=== PATIENT | female | born 1965 | race Caucasian/White ===

== ENCOUNTER 2021-12-30 12:08 | Inpatient (IN) ==
[2021-12-30] MEDS ORDERED: MAGNESIUM SULF RIDER 4 GM/100 ML PREMIX IV PRN (12:50)
[2021-12-30] MEDS ORDERED: BISACODYL 5 MG TABLET PO PRN (12:50)
[2021-12-30] MEDS ORDERED: diphenhydrAMINE CAP 25 MG CAPSULE PO PRN (12:50)
[2021-12-30] MEDS ORDERED: MORPHINE 2 MG/1 ML SYRINGE IV PRN (12:50)
[2021-12-30] MEDS ORDERED: ONDANSETRON 4 MG/2 ML VIAL IV PRN (12:50)
[2021-12-30] MEDS ORDERED: MAGNESIUM SULF RIDER 2 GM/50 ML PREMIX IV PRN (12:50)
[2021-12-30 14:44] LABS: Basophils # 0.1 10*3/uL (0.0-0.2); Basophils % 0.6 % (0.0-0.8); Eosinophils # 0.3 10*3/uL (0.0-0.87); Eosinophils % 2.5 % (0.00-10.9); Hematocrit 43.4 VOL% (35.7-47.0); Hemoglobin 15.1 GM/DL (12.0-16.0); Immature Granulocytes % 0.5 %; Immature Granulocytes Absolute 0.05 #; Lymphocytes # 2.1 10*3/uL (1.4-4.0); Lymphocytes % 19.1 % (21.3-54.2); Mean Corpuscular HGB Conc 34.8 GM/DL (32-36); Mean Corpuscular Volume 86.8 FL (87-102); Mean Platelet Volume 10.2 FL (9.6-12.0); Monocytes # 0.5 10*3/uL (0.11-0.8); Monocytes % 4.3 % (1.7-12.7); Platelet Count 393 T/CUMM (130-400); Red Cell Distribution Width 12.8 % (9.3-17.3); White Blood Count 10.9 T/CUMM (4-12)
[2021-12-30] MEDS ORDERED: LOSARTAN 25 MG TABLET PO SCH (15:21)
[2021-12-30] MEDS ORDERED: hydrALAZINE 20 MG/1 ML VIAL IV PRN (15:21)
[2021-12-30 15:33] LABS: Albumin 3.7 G/DL (3.4-5.0); Bilirubin,Total 0.6 MG/DL (0.20-1.00); Calcium 9.7 MG/DL (8.5-10.1); Osmolality,Calculated 279.4 MOS/KG (273-304); Potassium 3.4 MMOL/L (3.5-5.1); Thyroid Stimulating Hormone 1.33 uIU/ml (0.358-3.74); Total Protein 8.4 G/DL (6.4-8.2)
[2021-12-30] MEDS ORDERED: VALSARTAN 80 MG TABLET PO ONE (15:44)
[2021-12-30] MEDS: POTASSIUM CHLORIDE 20 MEQ TABLET PO PRN ×3 (16:00→20:21)
[2021-12-30] MEDS: ZALEPLON 5 MG CAPSULE PO PRN (23:42)
[2021-12-31 05:41] LABS: Basophils # 0.1 10*3/uL (0.0-0.2); Basophils % 0.8 % (0.0-0.8); Eosinophils # 0.4 10*3/uL (0.0-0.87); Eosinophils % 4.9 % (0.00-10.9); Hematocrit 40.4 VOL% (35.7-47.0); Hemoglobin 13.7 GM/DL (12.0-16.0); Immature Granulocytes % 0.4 %; Immature Granulocytes Absolute 0.03 #; Lymphocytes # 2.2 10*3/uL (1.4-4.0); Lymphocytes % 26.6 % (21.3-54.2); Mean Corpuscular HGB Conc 33.9 GM/DL (32-36); Mean Corpuscular Volume 87.8 FL (87-102); Mean Platelet Volume 10.1 FL (9.6-12.0); Monocytes # 0.6 10*3/uL (0.11-0.8); Monocytes % 6.6 % (1.7-12.7); Neutrophils % 60.7 % (38.7-73.9); Platelet Count 313 T/CUMM (130-400); Red Cell Distribution Width 12.7 % (9.3-17.3); White Blood Count 8.3 T/CUMM (4-12)
[2021-12-31 06:01] LABS: Albumin 3.2 G/DL (3.4-5.0); Bilirubin,Total 0.8 MG/DL (0.20-1.00); Calcium 8.6 MG/DL (8.5-10.1); Osmolality,Calculated 282.3 MOS/KG (273-304); Potassium 3.8 MMOL/L (3.5-5.1); Risk Ratio 3.64; VLDL Cholesterol 12.4 MG/DL
[2021-12-31] MEDS: PANTOPRAZOLE 40 MG TABLET PO SCH (08:40)
[2021-12-31] MEDS: CHLORTHALIDONE 25 MG TABLET PO SCH (08:40)
[2021-12-31] MEDS: POTASSIUM CHLORIDE 20 MEQ TABLET PO PRN (08:40)
[2021-12-31] MEDS: LORATADINE 10 MG TABLET PO SCH (08:41)
[2021-12-31] MEDS ORDERED: VALSARTAN 80 MG TABLET PO SCH (09:00)
[2022-01-01 05:23] LABS: Basophils # 0.1 10*3/uL (0.0-0.2); Basophils % 0.7 % (0.0-0.8); Eosinophils # 0.5 10*3/uL (0.0-0.87); Hematocrit 41.6 VOL% (35.7-47.0); Hemoglobin 14.3 GM/DL (12.0-16.0); Immature Granulocytes % 0.4 %; Immature Granulocytes Absolute 0.04 #; Lymphocytes # 2.6 10*3/uL (1.4-4.0); Lymphocytes % 24.6 % (21.3-54.2); Mean Corpuscular HGB Conc 34.4 GM/DL (32-36); Mean Corpuscular Volume 87.4 FL (87-102); Mean Platelet Volume 10.4 FL (9.6-12.0); Monocytes # 0.8 10*3/uL (0.11-0.8); Monocytes % 7.1 % (1.7-12.7); Neutrophils % 62.2 % (38.7-73.9); Platelet Count 338 T/CUMM (130-400); Red Blood Count 4.76 MC/CUMM (3.8-5.5); Red Cell Distribution Width 12.7 % (9.3-17.3); White Blood Count 10.6 T/CUMM (4-12)
[2022-01-01 05:41] LABS: Calcium 9.1 MG/DL (8.5-10.1); Osmolality,Calculated 284.3 MOS/KG (273-304); Potassium 3.6 MMOL/L (3.5-5.1)
[2022-01-01] MEDS: PANTOPRAZOLE 40 MG TABLET PO SCH (09:43)
[2022-01-01] MEDS: LORATADINE 10 MG TABLET PO SCH (09:43)
[2022-01-01] MEDS: CHLORTHALIDONE 25 MG TABLET PO SCH (09:43)
[2022-01-01] MEDS: VALSARTAN 80 MG TABLET PO SCH (09:43)
[2022-01-01] MEDS ORDERED: DIAZEPAM 5 MG TABLET PO ONE (11:08)
[2022-01-01] MEDS ORDERED: diphenhydrAMINE CAP 50 MG CAPSULE PO ONE (11:08)
[2022-01-01] MEDS ORDERED: SODIUM CHLORIDE 0.45% 1,000 ML IV SCH (11:30)
[2022-01-01] MEDS ORDERED: HEPARIN/NACL 0.9% 2 UNITS/ML 2,000 UNIT/1,000 ML BAG IV ONE (12:37)
[2022-01-01] MEDS ORDERED: fentaNYL 100 MCG/2 ML VIAL ONE (12:56)
[2022-01-01] MEDS ORDERED: MIDAZOLAM 2 MG/2 ML VIAL ONE ×2 (12:56→13:22)
[2022-01-01 16:27] LABS: Bacteria,Urine Occasional /HPF (Few); RBC,Urine 2 /HPF (0-4)
[2022-01-01 16:29] LABS: Bilirubin,Urine Negative (Negative); Blood, Urine Trace mg/dL (Negative); Glucose,Urine (UA) Negative (Negative); Ketones,Urine NN mg/dL (Negative); Nitrite,Urine Negative (Negative); Protein,Urine Negative (Negative); Urine Appearance Clear (Clear); Urine Color Yellow (Yellow); Urine Urobilinogen 0.2 eU/dL (<2.0)
[2022-01-01] MEDS: ACETAMINOPHEN 325 MG TABLET PO PRN (20:03)
[2022-01-01] MEDS: ZALEPLON 5 MG CAPSULE PO PRN (21:03)
[2022-01-02] MEDS: ACETAMINOPHEN 325 MG TABLET PO PRN (00:29)
[2022-01-02] MEDS: ZALEPLON 5 MG CAPSULE PO PRN ×2 (00:30→21:13)
[2022-01-02] MEDS ORDERED: ceFAZolin 1,000 MG VIAL IRRIG ONE (06:00)
[2022-01-02] MEDS ORDERED: DIAZEPAM 5 MG TABLET PO ONE (06:00)
[2022-01-02] MEDS ORDERED: SODIUM CHLORIDE 0.9% 1,000 ML IV SCH (06:00)
[2022-01-02] MEDS ORDERED: diphenhydrAMINE CAP 50 MG CAPSULE PO ONE (06:00)
[2022-01-02 06:25] LABS: Basophils # 0.1 10*3/uL (0.0-0.2); Basophils % 0.6 % (0.0-0.8); Eosinophils # 0.3 10*3/uL (0.0-0.87); Eosinophils % 3.3 % (0.00-10.9); Hematocrit 43.9 VOL% (35.7-47.0); Hemoglobin 15.1 GM/DL (12.0-16.0); Immature Granulocytes % 0.6 %; Immature Granulocytes Absolute 0.06 #; Lymphocytes # 2.6 10*3/uL (1.4-4.0); Lymphocytes % 25.2 % (21.3-54.2); Mean Corpuscular HGB Conc 34.4 GM/DL (32-36); Mean Corpuscular Volume 86.8 FL (87-102); Mean Platelet Volume 10.4 FL (9.6-12.0); Monocytes # 0.6 10*3/uL (0.11-0.8); Monocytes % 5.7 % (1.7-12.7); Neutrophils % 64.6 % (38.7-73.9); Platelet Count 370 T/CUMM (130-400); Red Blood Count 5.06 MC/CUMM (3.8-5.5); Red Cell Distribution Width 12.9 % (9.3-17.3); White Blood Count 10.4 T/CUMM (4-12)
[2022-01-02 06:44] LABS: Osmolality,Calculated 278.7 MOS/KG (273-304); Potassium 3.3 MMOL/L (3.5-5.1)
[2022-01-02] MEDS ORDERED: TISSUE ADHESIVE 1 EACH APPLICATOR TOP ONE (06:59)
[2022-01-02] MEDS ORDERED: HEPARIN/NACL 0.9% 2 UNITS/ML 1,000 UNIT/500 ML BAG IV ONE (06:59)
[2022-01-02] MEDS ORDERED: ceFAZolin 1,000 MG VIAL ONE (06:59)
[2022-01-02] MEDS ORDERED: fentaNYL 100 MCG/2 ML VIAL ONE (07:21)
[2022-01-02] MEDS ORDERED: MIDAZOLAM 2 MG/2 ML VIAL ONE ×2 (07:21→07:42)
[2022-01-02] MEDS ORDERED: ATROPINE 1 MG/10 ML SYRINGE ONE (09:03)
[2022-01-02] MEDS: VALSARTAN 80 MG TABLET PO SCH (10:04)
[2022-01-02] MEDS: LORATADINE 10 MG TABLET PO SCH (10:04)
[2022-01-02] MEDS: POTASSIUM CHLORIDE 20 MEQ TABLET PO PRN ×2 (10:04→14:11)
[2022-01-02] MEDS: CHLORTHALIDONE 25 MG TABLET PO SCH (10:04)
[2022-01-02] MEDS: PANTOPRAZOLE 40 MG TABLET PO SCH (10:04)
[2022-01-03 05:06] LABS: Basophils % 0.4 % (0.0-0.8); Eosinophils # 0.4 10*3/uL (0.0-0.87); Eosinophils % 3.7 % (0.00-10.9); Hematocrit 40.4 VOL% (35.7-47.0); Hemoglobin 13.7 GM/DL (12.0-16.0); Immature Granulocytes % 0.4 %; Immature Granulocytes Absolute 0.04 #; Lymphocytes # 2.3 10*3/uL (1.4-4.0); Lymphocytes % 22.7 % (21.3-54.2); Mean Corpuscular HGB Conc 33.9 GM/DL (32-36); Mean Corpuscular Volume 87.8 FL (87-102); Mean Platelet Volume 10.4 FL (9.6-12.0); Monocytes # 0.7 10*3/uL (0.11-0.8); Monocytes % 6.5 % (1.7-12.7); Neutrophils % 66.3 % (38.7-73.9); Platelet Count 277 T/CUMM (130-400); Red Cell Distribution Width 12.8 % (9.3-17.3); White Blood Count 10.3 T/CUMM (4-12)
[2022-01-03 05:20] LABS: Osmolality,Calculated 278.7 MOS/KG (273-304); Potassium 3.7 MMOL/L (3.5-5.1)
[2022-01-03] MEDS: CHLORTHALIDONE 25 MG TABLET PO SCH (10:08)
[2022-01-03] MEDS: LORATADINE 10 MG TABLET PO SCH (10:08)
[2022-01-03] MEDS: VALSARTAN 80 MG TABLET PO SCH (10:08)
[2022-01-03] MEDS: PANTOPRAZOLE 40 MG TABLET PO SCH (10:09)
[2022-01-03 11:01] VITALS: BP 129/65
[2022-01-04] MEDS ORDERED: ASPIRIN EC 81 MG TABLET PO SCH (09:00)
== END 2022-01-03 11:41 | disposition home or self-care (01) | DRG 244 ==
LOC: N.2W → N.TELEN 12-31 17:31 → N.ICU 01-01 11:01 → N.TELEN 01-02 17:58
PROVIDERS: ADMIT Internal Medicine Cardiovascular Disease; ATTEND Internal Medicine Cardiovascular Disease
PROC: CLCCHCL (ICD-10-PCS; 2022-01-01 13:15)